=== PATIENT | female | born 1965 | race Caucasian/White ===

== ENCOUNTER 2016-07-31 15:30 | Outpatient (CLI) | payer OTHER | END 2016-07-31 15:31 | disposition home or self-care (01) | DX: R39.15 Urgency of urination (principal) ==

== ENCOUNTER 2017-12-24 08:51 | Outpatient (CLI) | payer OTHER ==
[2017-12-24 12:56] LABS: BASOPHILS % (AUTO) 0.5 %; EOSINOPHILS # (AUTO) 0.2 10^3/uL (0.0-0.7); EOSINOPHILS % (AUTO) 2.1 %; LYMPHOCYTES # (AUTO) 2.9 10^3/uL (1.5-3.5); LYMPHOCYTES % (AUTO) 38.9 %; MEAN CORPUSCULAR HEMOGLOBIN 31.7 pg (27.0-31.0); MEAN CORPUSCULAR HGB CONC 32.7 g/dL (32.0-36.0); MEAN CORPUSCULAR VOLUME 96.9 fL (81.0-99.0); MEAN PLATELET VOLUME 9.4 fL (7.9-10.8); MONOCYTES # (AUTO) 0.5 10^3/uL (0.0-1.0); MONOCYTES % (AUTO) 6.5 %; NEUTROPHILS # (AUTO) 3.9 10^3/uL (1.5-6.6); PLT - PLATELET COUNT 300 10^3/uL (130-450); RED BLOOD COUNT 4.73 10^6/uL (4.20-5.40); RED CELL DISTRIBUTION WIDTH 13.5 % (12.0-15.0); WHITE BLOOD COUNT 7.5 x10^3/uL (4.8-10.8)
[2017-12-24 14:00] LABS: ALBUMIN 3.9 g/dL (3.2-5.5); ALBUMIN/GLOBULIN RATIO 1.3 (1.0-2.2); ALKALINE PHOSPHATASE 56 IU/L (42-121); ALT ALANINE AMINOTRANSFERASE 16 IU/L (10-60); AST ASPARTATE AMINOTRANSFERASE 19 IU/L (10-42); BILIRUBIN,TOTAL 0.6 mg/dL (0.2-1.0); BUN - BLOOD UREA NITROGEN 15 mg/dL (6-20); CARBON DIOXIDE - CO2 27 mmol/L (21-32); CHLORIDE 106 mmol/L (101-111); CHOL/HDL RATIO 4.1 (<4.4); CHOLESTEROL 234 mg/dL; CREATININE 0.7 mg/dL (0.4-1.0); GFR - MDRD 88 (>89); GLUCOSE 91 mg/dL (70-100); HDL CHOLESTEROL 57 mg/dL; LDL CHOLESTEROL,CALCULATED 153 mg/dL; LDL/HDL RATIO 2.7 (<4.4); SODIUM 138 mmol/L (135-145); TOTAL PROTEIN 6.8 g/dL (6.7-8.2); VLDL CHOLESTEROL 24 mg/dL
== END 2017-12-24 08:52 | disposition home or self-care (01) ==
LOC: LAB.WCP 08:51
PROVIDERS: ATTEND Family Medicine
DX: Z86.19 Personal history of other infectious and parasitic diseases (principal); E78.5 Hyperlipidemia, unspecified; Z00.00 Encounter for general adult medical examination without abnormal findings
CPT/HCPCS: 36415; 80053; 80061; 83721; 84443; 85025

== ENCOUNTER 2018-01-14 10:43 | Outpatient (CLI) | payer OTHER ==
--- NOTE | 2018-01-17 17:47 | Mammography Report ---
Procedure Date: 01/14/2018 Accession Number: [id number] / [id number] Procedure: UNIQUE - Screening Mammo Dig Bilat CPT Code: FULL RESULT: EXAM: Screening Mammo Dig Bilat DATE: 01/14/2018 11:11 AM CLINICAL HISTORY: 52-year-old female with a family history of breast cancer in her grandmother at age 50. TECHNIQUE: Bilateral CC and MLO views were obtained. COMPARISON: 12/05/2014, 07/14/2013, 06/14/2012, 03/30/2009. FINDINGS: The breasts demonstrate heterogeneously dense fibroglandular parenchyma bilaterally. The breasts contain bilateral typically benign calcifications. No suspicious masses, clustered microcalcifications, or regions of architectural distortion are identified. IMPRESSION: Benign findings RECOMMENDATION: Routine annual screening unless otherwise clinically indicated. BIRADS CATEGORY 2: Benign findings STANDARD QUALIFYING STATEMENTS: 1. This examination was reviewed with the aid of Computer-Aided Detection (CAD). 2. A negative or benign imaging report should not delay biopsy if clinically suspicious findings are present. Consider surgical consultation if warrented. More than 5% of cancers are not identified by imaging. 3. Dense breasts may obscure an underlying neoplasm.
== END 2018-01-14 10:44 | disposition home or self-care (01) ==
LOC: DI 10:43
PROVIDERS: ATTEND Family Medicine
DX: Z12.31 Encounter for screening mammogram for malignant neoplasm of breast (principal)
CPT/HCPCS: 77067

== ENCOUNTER 2018-01-31 07:47 | Outpatient (CLI) | payer OTHER ==
--- NOTE | 2018-02-01 09:13 | MRI Report ---
Procedure Date: 01/31/2018 Accession Number: [id number] / [id number] Procedure: MRI - Knee LT W/O CPT Code: FULL RESULT: EXAM: LEFT KNEE MRI WITHOUT CONTRAST EXAM DATE: 01/31/2018 08:38 AM. CLINICAL HISTORY: Knee joint pain, left. COMPARISON: None. TECHNIQUE: Multiplanar, multisequence T1-weighted and fluid-sensitive sequences of the knee without contrast. Other: None. FINDINGS: Bones: There is a focus of subchondral edema in the anterior margin of the medial femoral condyle. There is a small focus of marrow edema in the posterior margin of the medial femoral condyle. Articular Cartilage: There is a full-thickness erosion of the hyaline cartilage of the medial patellar facet. There is mild thinning of the adjacent cartilage of the femoral trochlea. There is mild thinning of the medial compartment cartilage. The lateral compartment cartilage appears normal. Medial Meniscus: The medial meniscus is intact. Lateral Meniscus: The lateral meniscus is intact. Cruciate Ligaments: The anterior and posterior cruciate ligaments are intact. Collateral Ligaments: The medial collateral and lateral collateral ligamentous structures are intact. Tendons: The quadriceps, patellar, semimembranosus, and popliteus tendons are unremarkable. Musculature: No edema or fatty atrophy. Other: Small joint effusion. No popliteal cyst. No loose bodies. The medial and lateral retinacula are intact. There is edema in the posteromedial capsule at its attachment to the femur where there is adjacent marrow edema described above. The findings are suggestive of a high-grade partial-thickness capsular tear. IMPRESSION: 1. 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 2. Small joint effusion. 3. High-grade partial-thickness tear of the posteromedial capsular attachment. [facility] MUSCULOSKELETAL RADIOLOGY SECTION
== END 2018-01-31 07:48 | disposition home or self-care (01) ==
LOC: DI 07:47
PROVIDERS: ATTEND Family Medicine
DX: M17.12 Unilateral primary osteoarthritis, left knee (principal); M25.462 Effusion, left knee; S83.8X2A Sprain of other specified parts of left knee, initial encounter

== ENCOUNTER 2019-07-06 11:25 | Outpatient (CLI) | payer OTHER ==
--- NOTE | 2019-07-06 14:02 | XRAY Report ---
Reason: LEFT KNEE PAIN Procedure Date: 07/06/2019 Accession Number: [id number] / [id number] Procedure: WCP - Knee 3 View LT CPT Code: Final Report FULL RESULT: EXAM: LEFT KNEE RADIOGRAPHY EXAM DATE: 07/06/2019 11:25 AM. CLINICAL HISTORY: Fall onto the kneecap 6 days ago. COMPARISON: KNEE 3 VIEW RT 12/23/2017 11:36 AM. TECHNIQUE: 3 views. FINDINGS: Bones: Post traumatic changes are seen along the expected region of the lateral collateral ligament, not acute appearing. No fractures or bone lesions. Joints: Normal. No significant effusion. No subluxations. Soft Tissues: Normal. No soft tissue swelling. IMPRESSION: No acute osseous injury. [facility]
== END 2019-07-06 23:59 | disposition home or self-care (01) ==
LOC: DI.WCP 11:25
PROVIDERS: ATTEND Physician Assistant Medical
DX: S80.02XA Contusion of left knee, initial encounter (principal)

== ENCOUNTER 2019-10-26 09:00 | Outpatient (CLI) | payer OTHER ==
[2019-10-26 12:59] LABS: BASOPHILS # (AUTO) 0.1 10^3/uL (0.0-0.1); BASOPHILS % (AUTO) 0.5 %; EOSINOPHILS # (AUTO) 0.2 10^3/uL (0.0-0.7); EOSINOPHILS % (AUTO) 1.4 %; HGB - HEMOGLOBIN 15.6 g/dL (12.0-16.0); LYMPHOCYTES # (AUTO) 2.2 10^3/uL (1.5-3.5); LYMPHOCYTES % (AUTO) 21.2 %; MEAN CORPUSCULAR HEMOGLOBIN 31.8 pg (27.0-31.0); MEAN CORPUSCULAR HGB CONC 32.7 g/dL (32.0-36.0); MEAN CORPUSCULAR VOLUME 97.1 fL (81.0-99.0); MONOCYTES # (AUTO) 0.6 10^3/uL (0.0-1.0); MONOCYTES % (AUTO) 5.8 %; NEUTROPHILS # (AUTO) 7.3 10^3/uL (1.5-6.6); NEUTROPHILS % (AUTO) 70.7 %; PLT - PLATELET COUNT 287 10^3/uL (130-450); RED BLOOD COUNT 4.91 10^6/uL (4.20-5.40); RED CELL DISTRIBUTION WIDTH 13.7 % (12.0-15.0); WHITE BLOOD COUNT 10.4 x10^3/uL (4.8-10.8)
[2019-10-26 13:52] LABS: ALBUMIN 4.4 g/dL (3.2-5.5); ALBUMIN/GLOBULIN RATIO 1.4 (1.0-2.2); ALKALINE PHOSPHATASE 71 IU/L (42-121); ALT ALANINE AMINOTRANSFERASE 19 IU/L (10-60); AST ASPARTATE AMINOTRANSFERASE 20 IU/L (10-42); BILIRUBIN,TOTAL 0.4 mg/dL (0.2-1.0); BUN - BLOOD UREA NITROGEN 13 mg/dL (6-20); CARBON DIOXIDE - CO2 26 mmol/L (21-32); CHLORIDE 104 mmol/L (101-111); CHOL/HDL RATIO 4.1 (<4.4); CHOLESTEROL 269 mg/dL; CREATININE 0.7 mg/dL (0.4-1.0); GLUCOSE 92 mg/dL (70-100); HDL CHOLESTEROL 65 mg/dL; LDL CHOLESTEROL,CALCULATED 188 mg/dL; LDL/HDL RATIO 2.9 (<4.4); LIPASE 43 U/L (22-51); SODIUM 137 mmol/L (135-145); TOTAL PROTEIN 7.5 g/dL (6.7-8.2); VLDL CHOLESTEROL 16 mg/dL
== END 2019-10-26 23:59 | disposition home or self-care (01) ==
LOC: LAB.WCP 09:00
PROVIDERS: ATTEND Physician Assistant Medical
DX: Z00.00 Encounter for general adult medical examination without abnormal findings (principal); E78.5 Hyperlipidemia, unspecified; Z86.19 Personal history of other infectious and parasitic diseases
CPT/HCPCS: 36415; 80053; 80061; 83690; 83721; 84443; 85025

== ENCOUNTER 2019-11-22 08:17 | Outpatient (CLI) | payer OTHER ==
--- NOTE | 2019-11-22 16:47 | CT Report ---
Reason: TOBACCO USE DISORDER Procedure Date: 11/22/2019 Accession Number: [id number] / [id number] Procedure: CT - Low Dose Lung Cancer Screen CPT Code: Final Report FULL RESULT: EXAM CT LUNG SCREEN EXAM DATE: 11/22/2019 08:27 AM. HISTORY: 54-year-old patient with [id number] smoking history. Currently smoking: No. Years since quittin years. COMPARISON: Chest x-ray from 04/18/2009. TECHNIQUE: CT examination of the entire thorax without contrast was performed using low-dose technique. Thin section coronal, axial, sagittal and MIP axial images were obtained. In accordance with CT protocol optimization, one or more of the following dose reduction techniques were utilized for this exam: automated exposure control, adjustment of mA and/or KV based on patient size, or use of iterative reconstructive technique. FINDINGS: Nodules: Right upper lobe: None. Right middle lobe: 2.5 mm, image 89, series 4. Right lower lobe: 5 mm image 58, series 4. 3.5 mm, image 67, series 4. Left upper lobe: None. Left lower lobe: Anterior left perifissural, 5 mm, image 63, series 4. Emphysema: No significant emphysematous changes. Pleura: Unremarkable. Aorta: Unremarkable. Mediastinum: Heart size normal. Trace pericardial effusion. Small hiatal hernia. No enlarged mediastinal or hilar lymph nodes. Visualized thyroid gland unremarkable. Coronary calcifications: None. Other pulmonary findings: Mild right middle lobe, lingular and basilar scar/atelectasis. No endobronchial obstruction. No pneumothorax. No vascular congestion. Other extrapulmonary findings: Included portions of the upper abdomen, unremarkable. Mild degenerative changes of the thoracic spine. No acute osseous abnormalities. IMPRESSION: Lung-RADS ASSESSMENT CATEGORY: 2 - benign appearance or behavior. Probability of malignancy: Less than 1%. RECOMMENDATION: Recommend follow-up low-dose chest CT in 12 months. [facility]
== END 2019-11-22 08:18 | disposition home or self-care (01) ==
LOC: DI 08:17
PROVIDERS: ATTEND Physician Assistant Medical
DX: Z12.2 Encounter for screening for malignant neoplasm of respiratory organs (principal); Z87.891 Personal history of nicotine dependence

== ENCOUNTER 2020-03-12 14:40 | Outpatient (CLI) | payer OTHER ==
--- NOTE | 2020-03-12 14:13 | XRAY Report ---
PROCEDURE: Foot 3 View RT INDICATIONS: PLANTAR FASCIITIS TECHNIQUE: 3 views of the foot were acquired. COMPARISON: None FINDINGS: Bones: No fractures or dislocations. Tiny plantar calcaneal enthesophyte is seen. No suspicious bony lesions. Soft tissues: No tibiotalar joint effusion. Achilles tendon appears normal. Questionable plantar s oft tissue prominence over plantar calcaneus is seen. Prominence IMPRESSION: Tiny plantar calcaneal enthesophyte. Questionable soft tissues prominence over plantar calcaneus whic h likely related to patient's clinical diagnosis of plantar fasciitis. Reviewed by: Rigoberto Bo MD on 03/12/2020 2:11 PM PDT Approved by: Rigoberto Bo MD on 03/12/2020 2:11 PM PDT Station ID: [id number]
== END 2020-03-12 23:59 | disposition home or self-care (01) ==
LOC: DI.WCP 14:40
PROVIDERS: ATTEND Family Medicine
DX: M77.51 Other enthesopathy of right foot and ankle (principal); R93.89 Abnormal findings on diagnostic imaging of other specified body structures

== ENCOUNTER 2020-04-05 10:39 | Outpatient (CLI) | payer OTHER ==
--- NOTE | 2020-04-05 15:15 | XRAY Report ---
PROCEDURE: Ribs 2 View LT INDICATIONS: LEFT SIDED RIB PAIN TECHNIQUE: 3 views of the left ribs were acquired. COMPARISON: None FINDINGS: Surgical changes and devices: None. Bones and chest wall: No fractures or dislocations. No suspicious bony lesions. Overlying soft tis sues appear unremarkable. Lungs and pleura: The visualized left lung demonstrate minimal costophrenic angle blunting. IMPRESSION: No visualized acute fracture or dislocation. However, occult injury cannot be excluded. Recommend nicolas rt interval imaging follow-up in 7-10 days as clinically indicated for additional evaluation. Minimal left costophrenic angle blunting, likely representing trace fluid fluid versus scarring. Reviewed by: Christiana Hyde MD on 04/05/2020 3:14 PM PDT Approved by: Christiana Hyde MD on 04/05/2020 3:14 PM PDT Station ID: [id number]
== END 2020-04-05 10:40 | disposition home or self-care (01) ==
LOC: DI.WCP 10:39
PROVIDERS: ATTEND Family Medicine
DX: R07.81 Pleurodynia (principal)

== ENCOUNTER 2020-04-15 11:46 | Day surgery (SDC) | payer OTHER ==
[2020-04-15] MEDS ORDERED: LACTATED RINGERS 1,000 ML IV ONE (12:54)
[2020-04-15] MEDS ORDERED: fentaNYL 250 MCG/5 ML VIAL IVP ONE (14:22)
[2020-04-15] MEDS ORDERED: MIDAZOLAM 2 MG/2 ML VIAL IVP ONE (14:22)
[2020-04-15] MEDS ORDERED: LACTATED RINGERS 200 ML IV ONE ×2 (14:55)
[2020-04-15 15:47] VITALS: BP 98/63
== END 2020-04-15 11:47 | disposition home or self-care (01) ==
LOC: SDS 11:46
PROVIDERS: ATTEND Surgery
PROC: 0DBN8ZZ Excision of Sigmoid Colon, Via Natural or Artificial Opening Endoscopic (ICD-10-PCS; 2020-04-15)
PROC: 0DBP8ZZ Excision of Rectum, Via Natural or Artificial Opening Endoscopic (ICD-10-PCS; principal; 2020-04-15 13:00)
DX: Z12.11 Encounter for screening for malignant neoplasm of colon (principal); K63.5 Polyp of colon; K62.1 Rectal polyp; K57.30 Diverticulosis of large intestine without perforation or abscess without bleeding; J32.9 Chronic sinusitis, unspecified; Z79.899 Other long term (current) drug therapy; Z87.891 Personal history of nicotine dependence
CPT/HCPCS: 45380; J3010; J7120

== ENCOUNTER 2021-10-10 07:52 | Outpatient (CLI) | payer OTHER | END 2021-10-10 23:59 | disposition home or self-care (01) | LOC: LAB.N 07:52 | PROVIDERS: ATTEND Family Medicine | DX: N39.0 Urinary tract infection, site not specified (principal) | CPT/HCPCS: 87086 ==

== ENCOUNTER 2022-10-08 10:29 | Outpatient (CLI) | payer OTHER ==
[2022-10-08 12:03] LABS: BILIRUBIN,URINE NEGATIVE (NEGATIVE); GLUCOSE, URINE (UA) NEGATIVE (NEGATIVE); KETONES,URINE (UA) NEGATIVE (NEGATIVE); LEUKOCYTE ESTERASE, URINE NEGATIVE (NEGATIVE); NITRITE,URINE NEGATIVE (NEGATIVE); OCCULT BLOOD,URINE SMALL (NEGATIVE); PH,URINE 6.5 PH (5.0-7.5); PROTEIN,URINE NEGATIVE (NEGATIVE); UROBILINOGEN,URINE 0.2 (NORMAL) E.U./dL (NORMAL)
[2022-10-08 12:14] LABS: BACTERIA,URINE None Seen /HPF (None Seen); CLARITY,URINE CLEAR (CLEAR); RBC,URINE 0-5 /HPF (0-5); SQUAMOUS EPITHELIAL CELL,UR NONE SEEN (<= Few); WBC,URINE 0-3 /HPF (0-5)
[2022-10-08 15:36] LABS: BACTERIAL VAGINOSIS DNA NEGATIVE (NEGATIVE); CANDIDA GLABRATA DNA NEGATIVE (NEGATIVE); CANDIDA GROUP DNA NEGATIVE (NEGATIVE); CANDIDA KRUSEI DNA NEGATIVE (NEGATIVE); TRICHOMONAS VAGINALIS DNA NEGATIVE (NEGATIVE)
== END 2022-10-08 23:59 | disposition home or self-care (01) ==
LOC: LAB.N 10:29
PROVIDERS: ATTEND Physician Assistant
DX: N39.0 Urinary tract infection, site not specified (principal); N89.8 Other specified noninflammatory disorders of vagina
CPT/HCPCS: 81001; 81514; 87086

== ENCOUNTER 2023-06-16 13:51 | Outpatient (CLI) | payer OTHER ==
--- NOTE | 2023-06-17 10:20 | Mammography Report ---
BILATERAL DIGITAL SCREENING MAMMOGRAM 3D/2D: 06/16/2023 CLINICAL: Routine screening. Comparison is made to exams dated: 01/14/2018 mammogram, 12/05/2014 mammogram, and 07/14/2013 mammogram - [facility]. There are scattered areas of fibroglandular density in both breasts (category b / 25%-50% glandular t issue). No significant masses, calcifications, or other findings are seen in either breast. There has been no significant interval change. IMPRESSION: NEGATIVE There is no mammographic evidence of malignancy. A 1 year screening mammogram is recommended. Based on the Tyrer Cuzick model (a risk assessment model) the patients lifetime risk is 6.9% and her 10 year risk is 2.7%. According to the ACR, ACS, and NCCN guidelines, an annual breast MRI exam gabriela g with mammogram is recommended if the patients lifetime risk is 20% or greater. This exam was interpreted at Station ID: [id number]. NOTE: For mammograms, a report in lay terms will be sent to the patient. Approximately 15% of breast malignancies will not be visualized mammographically. In the management of a palpable breast mass, a negative mammogram must not discourage biopsy of a clinically suspicious lesion. Electronically Signed By: Lyssa Sharpe M.D., PH.D sudhir/shantal:06/17/2023 00:38:55 letter sent: No_Letter ACR BI-RADS Category 1: Negative 3341F PARENCHYMAL PATTERN: (A) - The breast(s) demonstrate(s) scattered fibroglandular densities. BI-RADS CATEGORY: (1) - 1 Mammogram [id number] 1 year screening LATERALITY: (B)
== END 2023-06-16 13:52 | disposition home or self-care (01) ==
LOC: DI 13:51
DX: Z12.31 Encounter for screening mammogram for malignant neoplasm of breast (principal); R92.323 Mammographic fibroglandular density, bilateral breasts

== ENCOUNTER 2023-06-16 13:57 | Outpatient (CLI) | payer OTHER ==
--- NOTE | 2023-06-16 15:54 | XRAY Report ---
PROCEDURE: Hip w/Pelvis 2-3V RT INDICATIONS: RIGHT HIP PAIN TECHNIQUE: AP pelvis with lateral view(s) of the right hip(s). COMPARISON: None. FINDINGS: Bones: No fractures or dislocations. No suspicious bony lesions. Mild right hip degenerative matias ge. Soft tissues: No suspicious soft tissue calcifications or masses. IMPRESSION: No acute bony abnormality. Mild right hip degenerative change. Reviewed by: Yaw Mcgovern MD on 06/16/2023 3:52 PM PST Approved by: Yaw Mcgovern MD on 06/16/2023 3:52 PM PST Station ID: [id number]
== END 2023-06-16 13:58 | disposition home or self-care (01) ==
LOC: DI 13:57
PROVIDERS: ATTEND Physician Assistant Medical
DX: M16.11 Unilateral primary osteoarthritis, right hip (principal)

== ENCOUNTER 2023-07-22 09:46 | Outpatient (CLI) | payer OTHER ==
--- NOTE | 2023-07-22 13:15 | DEXA Report ---
PROCEDURE: Dexa Spine and/or Hip INDICATIONS: POST MENOPAUSAL TECHNIQUE: Dual energy x-ray absorptiometry (DXA) was performed on a [employer] System. Regions measur ed are the AP Spine, femoral neck, and if needed forearm. COMPARISON: None FINDINGS: Lumbar Spine: Bone Mineral Density 1.071 g/cm/cm,T score -0.9. Normal Left Femoral Neck: Bone Mineral Density 0.841 g/cm/cm, T score -1.4, osteopenia. Left Hip: Bone Mineral Density 0.875 g/cm/cm,T score -1.1. Osteopenia (T score greater or equal to -1.0: NORMAL) (T score from -1.1 to -2.4: OSTEOPENIA) (T score less than or equal to -2.5 to: OSTEOPOROSIS) Impression: By WHO criteria, this patient has low bone density (osteopenia). Patients with diagnosis of osteoporosis or osteopenia should have regular bone mineral density assess ment. For those eligible for Medicare, routine testing is allowed once every 2 years. Testing frequ ency can be increased for patients who have rapidly progressing disease or for those who are receivin g medical therapy to restore bone mass. Reviewed by: Corina Lott MD on 07/22/2023 1:13 PM PST Approved by: Corina Lott MD on 07/22/2023 1:13 PM PST Station ID: [id number]
== END 2023-07-22 09:47 | disposition home or self-care (01) ==
LOC: DI 09:46
PROVIDERS: ATTEND Physician Assistant Medical
DX: Z78.0 Asymptomatic menopausal state (principal); M85.89 Other specified disorders of bone density and structure, multiple sites